=== PATIENT | male | born 1980 | race Caucasian/White ===

== ENCOUNTER → 2018-03-26 09:02 | Outpatient (CLI) | payer OTHER, SELFPAY ==
[2018-03-31 16:10] LABS: QNTFERON TB Ag Minus Nil Value < 0 IU/mL (.); QNTFERON TB Ag Value 0.06 IU/mL (.); QNTFERON TB Mitogen Value > 10.00 IU/mL (.); QNTFERON TB Nil Value 0.08 IU/mL (.)
[2018-03-31 16:36] LABS: QNTIFERON TB Gold Negative (Negative)
== END ==
PROVIDERS: Visit Provider Dermatology Pediatric Dermatology
DX: L40.0 Psoriasis vulgaris (principal); Z79.899 Other long term (current) drug therapy
CPT/HCPCS: 36415; 86480

== ENCOUNTER → 2020-11-18 10:24 | Outpatient (CLI) | payer OTHER, SELFPAY ==
[2020-11-18 12:13] LABS: Absolute Lymphocyte Count 2.05 X10^3/uL (0.83-4.51); Absolute Neutrophil Count 2.4 X10^3/uL (2.0-7.7); Basophil# 0.02 X10^3/uL; Basophil% 0.4 % (0-1); Eosinophil# 0.06 X10^3/uL; Eosinophils% 1.2 % (0-5); Hematocrit 43.9 % (40-54); Lymphocyte # 2.05 X10^3/ul (4.0); Lymphocyte % 42.3 % (19-41); Mean Corp Hgb Conc 34.2 g/dL (32-36); Mean Corpuscular Hgb 30.2 pg (27.0-32.0); Mean Corpuscular Volume 88.3 fL (80-94); Mean Platelet Vol. 9.2 fl (6.2-12.0); Monocyte# 0.28 X10^3/uL; Monocyte% 5.8 % (0-10); NRBC Flagged by Analyzer 0 % (0-5); Neutrophil # 2.43 X10^3/uL (2.7-7.7); Neutrophil % 50.1 % (47-70); Platelet Count 221 K/mm3 (150-450); RBC Distribution Width CV 11.9 % (11.6-14.6); RBC Distribution Width SD 38.1 fl (35.1-43.9); Red Blood Count 4.97 M/mm3 (4.6-6.2); White Blood Count 4.9 K/mm3 (4.4-11.0)
[2020-11-18 12:37] LABS: AST(SGOT) 17 U/L (15-37); Alanine Aminotransfer ALT/SGPT 22 U/L (16-61); Alkaline Phosphatase 65 U/L (45-117); Anion Gap 3 (5-15); BUN 12 mg/dL (7-18); BUN/Creat Ratio 10.7 RATIO (10-20); Bilirubin, Direct 0.16 mg/dL (0.00-0.30); Calcium,Total 8.7 mg/dL (8.5-10.1); Chloride 105 mmol/L (98-107); Cholesterol 182 mg/dL (200); Creatinine, Serum 1.12 mg/dL (0.70-1.30); EST Glomerular Filtration Rate 77 mL/min (>60); Est Glom Filt Rate - Afr Amer 93 mL/min (>60); Globulin 3.1 g/dL (2.2-4.2); Glucose 87 mg/dL (74-106); High Density Lipoprotein 66 mg/dL; Potassium 3.8 mmol/L (3.5-5.1); Protein, Total 7.1 g/dL (6.4-8.2); Sodium Level 140 mmol/L (136-145); Triglycerides 66 mg/dL; Very Low Density Lipoprotein 13 mg/dL (5-40)
[2020-11-18 13:14] LABS: Hepatitis B Surface Antibody Non-Reactive; Hepatitis B Surface Antigen Non-Reactive (Nonreactive); Hepatitis C Antibody Non-Reactive (Nonreactive)
[2020-11-22 09:36] LABS: LDL, Direct 120295 108 mg/dL (0-99); QNTFERON TB Mitogen Value > 10.00 IU/mL (.); QNTFERON TB Nil Value 0.02 IU/mL (.); QNTFERON TB1+ Ag Value 0.04 IU/mL (.); QNTFERON TB2+ Ag Value 0.02 IU/mL (.)
[2020-11-22 15:44] LABS: Hepatitis B Core Ab Total Negative (Negative); QNTIFERON TB Positive Criteria Negative (Negative)
== END ==
PROVIDERS: PCP Family Medicine; Referring Provider Physician Assistant Medical; Visit Provider Physician Assistant Medical
DX: L40.0 Psoriasis vulgaris (principal); Z79.899 Other long term (current) drug therapy
CPT/HCPCS: 36415; 80048; 80061; 80076; 83721; 85025; 86480; 86704; 86706; 86803; 87340

== ENCOUNTER → 2021-09-22 10:03 | Outpatient (CLI) | payer OTHER, SELFPAY ==
[2021-09-29 16:09] LABS: QNTFERON TB Mitogen Value > 10.00 IU/mL (.); QNTFERON TB Nil Value 0.04 IU/mL (.); QNTFERON TB1+ Ag Value 0.06 IU/mL (.); QNTFERON TB2+ Ag Value 0.04 IU/mL (.)
[2021-09-29 16:21] LABS: QNTIFERON TB Positive Criteria Negative (Negative)
== END ==
PROVIDERS: PCP Family Medicine; Referring Provider Physician Assistant Medical; Visit Provider Physician Assistant Medical
DX: L40.0 Psoriasis vulgaris (principal); Z79.899 Other long term (current) drug therapy
CPT/HCPCS: 36415; 86480

== ENCOUNTER → 2023-01-18 | Outpatient (CLI) | payer OTHER, SELFPAY ==
[2023-01-23 10:08] LABS: QNTFERON TB Mitogen Value > 10.00 IU/mL (.); QNTFERON TB Nil Value 0.05 IU/mL (.); QNTFERON TB1+ Ag Value 0.03 IU/mL (.); QNTFERON TB2+ Ag Value 0.02 IU/mL (.)
[2023-01-23 20:32] LABS: Hepatitis B Core Ab Total Negative (Negative); QNTIFERON TB Positive Criteria Negative (Negative)
== END | disposition home or self-care (01) ==
PROVIDERS: PCP Family Medicine; Referring Provider Physician Assistant Medical; Visit Provider Physician Assistant Medical
DX: L40.0 Psoriasis vulgaris (principal); Z79.899 Other long term (current) drug therapy
CPT/HCPCS: 36415; 86480; 86704

== ENCOUNTER → 2024-02-13 | Outpatient (CLI) | payer OTHER, SELFPAY ==
--- OUTSIDE RECORDS SUMMARY | 2024-02-13 09:20 | XMS RPT_ITS | CCD ---
Author Name Unknown Address [address] [place] [address] Organization [facility] Care Team Providers Care Builder Beam Name Role Phone LORI LUGO MD Attending Unavailable Peña AKINS Consulting Unavailable LORI LUGO MD Admitting Unavailable LORI LUGO MD Primary Care Unavailable PROVIDER, UNKNOWN Consulting Unavailable PROVIDER, UNKNOWN Consulting Unavailable PROVIDER, UNKNOWN Consulting Unavailable Peña AKINS MD Unavailable [phone] SHILO GIBSON MD Unavailable [phone] DAMASO SHAHID MD Unavailable Guevara WOODS MD Unavailable ALYSIA HELM Unavailable Unavailable Kacie Harrington Unavailable Unavailable GOLDIE VELA Unavailable Unavailable Unavailable Unavailable Medications Current Medications Medication Drug Class(es) Dates Sig (Normalized) Sig (Original) 1 ml ixekizumab 80 mg/ml prefilled syringe (1 source) Interleukin-17A Antagonist Taltz 80 MG/ML Subcutaneous Solution Prefilled Syringe ; 1 monthly (80 MG/ML) Comments: psoriasis Completed/Discontinued Medications Medication Drug Class(es) Dates Sig (Normalized) Sig (Original) acetaZOLAMIDE 125 mg oral tablet (1 source) Carbonic Anhydrase Inhibitor Start: 08-07-2017 End: 08-26-2017 take 1 tablet by mouth twice daily AcetaZOLAMIDE 125 MG Oral Tablet ; 1 (one) Tablet two times daily for 0 days Quantity: 25 {Tablet} Refills: 0 Ordered: 26-Aug-2017 GOLDIE VELA Start: 07-Aug-2017 End: 26-Aug-2017 Status: Inactive Comments: start at least 24 hours before ascent Problems Active Problems Problem Classification Problem Date Documented Date Episodic/Chronic Abdominal pain (2 sources) Left inguinal pain; Translations: [Left lower quadrant pain] 11-19-2022 Episodic Cardiac and circulatory congenital anomalies (1 source) Bicuspid aortic valve; Translations: [Congenital insufficiency of aortic valve] 06-17-2017 Chronic Contraceptive and procreative management (1 source) Vasectomy planned; Translations: [Encounter for sterilization] 02-26-2014 Episodic Immunizations and screening for infectious disease (1 source) Requires diphtheria, tetanus and pertussis vaccination; Translations: [Encounter for immunization] 08-30-2015 Episodic Other circulatory disease (1 source) Elevated blood pressure; Translations: [Elevated blood-pressure reading, without diagnosis of hypertension] 08-28-2018 Episodic Other connective tissue disease (3 sources) Medial epicondylitis, right elbow; Translations: [Medial epicondylitis, right elbow] Onset: 10-17-2023 Episodic Other inflammatory condition of skin (2 sources) Psoriasis; Translations: [Psoriasis, unspecified] 08-31-2019 Chronic Other injuries and conditions due to external causes (1 source) Anoxia due to high altitude; Translations: [Other effects of high altitude, initial encounter] 08-07-2017 Episodic Other screening for suspected conditions (not mental disorders or infectious disease) (4 sources) Patient encounter status; Translations: [Encounter for screening for lipoid disorders] 08-31-2019 Episodic Pneumonia (except that caused by tuberculosis or sexually transmitted disease) (1 source) Pneumonia; Translations: [Pneumonia, unspecified organism] 09-20-2014 Episodic Residual codes; unclassified (1 source) Viral syndrome; Translations: [Other general symptoms and signs] 02-03-2018 Episodic Skin and subcutaneous tissue infections (2 sources) Furuncle; Translations: [Furuncle, unspecified] 06-18-2022 Episodic Spondylosis; intervertebral disc disorders; other back problems (2 sources) Sciatica; Translations: [Sciatica, left side] 11-19-2022 Episodic Viral infection (1 source) Viral exanthem; Translations: [Unspecified viral infection characterized by skin and mucous membrane lesions] 03-30-2017 Episodic Past or Other Problems Problem Classification Problem Date Documented Da te Episodic/Chronic Headache; including migraine (1 source) Headache; including migraine 02-03-2018 Other infections; including parasitic (1 source) Personal history of other infectious and parasitic diseases Onset: 01-30-2022 08-20-2022 Episodic Results Test Name Value Interpretation Reference Range Facil ity Vital Signs Date Time Vital Sign Value Performing Clinician Dylon chiu 11-19-2022 10:31-0500 Body height 181.61 cm Peña AKINS MD Work Phone: [employer]; [employer] 11-19-2022 10:31-0500 Body mass index (BMI) [Ratio] 24.07 kg/m2 Peña AKINS MD Work Phone: [employer]; [employer] 11-19-2022 10:31-0500 Body surface area Derived from formula 2 m2 Peña AKINS MD Work Phone: [employer]; [employer] 11-19-2022 10:31-0500 Body weight 79.38 kg Peña AKINS MD Work Phone: [employer]; [employer] 11-19-2022 10:31-0500 Diastolic blood pressure 89 mm[Hg] Peña AKINS MD Work Phone: [employer]; [employer] Encounters Encounter Date Encounter Type Care Provider Facility Start: 10-17-2023 End: 11-26-2023 ambulatory LORI GOLDBERG [facility] Start: 10-11-2023 End: 10-11-2023 Historical Summary Peña AKINS MD Work Phone: [employer] Start: 11-19-2022 End: 11-19-2022 Office outpatient visit 15 minutes Peña AKINS MD Work Phone: [employer] Start: 08-20-2022 End: 08-20-2022 Patient encounter procedure [facility] [employer] [employer] [facility] [employer]. Start: 08-20-2022 End: 08-20-2022 Periodic preventive med est patient 40-64yrs Peña AKINS MD Work Phone: [facility] [employer] [facility]. Start: 06-21-2022 End: 06-21-2022 Results Review [facility]INS [facility] [employer] Start: 06-18-2022 End: 06-18-2022 Office outpatient visit 15 minutes Peña AKINS MD Work Phone: [facility] [employer] Start: 08-28-2021 End: 08-28-2021 Patient encounter procedure Peña AKINS MD [facility] [employer]; [employer] [facility] [employer]. Start: 08-28-2021 End: 08-28-2021 Periodic preventive med est patient 40-64yrs Peña AKINS MD [facility] Start: 08-31-2019 End: 08-31-2019 Patient encounter procedure Peña AKINS MD [facility] [employer] [employer] [facility] [employer]. Start: 08-31-2019 End: 08-31-2019 Periodic preventive med est patient 40-64yrs Peña AKINS MD [facility] Start: 08-28-2018 End: 08-28-2018 Office outpatient visit 25 minutes Peña AKINS MD Work Phone: [facility] [employer] Start: 08-28-2018 End: 08-28-2018 Patient encounter status [facility] HELM [facility] [employer] [facility] [place]. Procedures Date Procedure Procedure Detail Performing Clinician Start: 11-19-2022 End: 11-19-2022 Dischrg meds reconciled w/current med list Peña AKINS MD Work Phone: Start: 08-20-2022 End: 08-20-2022 Dischrg meds reconciled w/current med list Peña AKINS MD Work Phone: Start: 06-18-2022 End: 06-18-2022 Dischrg meds reconciled w/current med list Peña AKINS MD Work Phone: Start: 08-28-2021 End: 08-28-2021 Dischrg meds reconciled w/current med list Peña AKINS MD Work Phone: Start: 08-31-2019 End: 08-31-2019 Dischrg meds reconciled w/current med list Peña AKINS MD Work Phone: Start: 08-31-2019 End: 08-31-2019 Urinary Incontinence Peña AKINS MD Work Phone: Plan of Treatment Date Care Activity Detail Author Start: 06-18-2022 Incision & drainage abscess simple/single I&D SKIN ABSCESS (25740) Start: 18-Jun-2022 Intent [employer] [facility] [employer]. Start: 08-31-2019 Comprehensive metabolic panel CMP - COMPREHENSIVE METABOLIC PANEL ([id number]) Start: 31-Aug-2019 15:44 Request [employer] [employer]. Start: 08-31-2019 Blood count complete auto&auto difrntl wbc CBC, PLATELETS & AUT DIFF ([id number]) Start: 31-Aug-2019 15:44 Request [employer] [employer]. Start: 08-31-2019 Lipid panel LIPID PANEL ([id number]) Start: 31-Aug-2019 15:43 Request [employer] [employer]. Start: 08-28-2018 Patient Education PSORIASIS Indication: Psoriasis Start: 28-Aug-2018 Instruction Type: Patient Education [employer]; [facility] [employer] Start: 08-26-2017 Urnls dip stick/tablet rgnt non-auto w/o micrscp U/A W/O MICROSCOPY (IN OFFICE) ([id number]) Start: 26-Aug-2017 10:20 [facility]; [facility] [employer] Start: 02-26-2014 Vasectomy uni/bi spx w/postop semen exams VASECTOMY ([id number]) Start: 26-Feb-2014 Intent Comments: done under local without complications [facility] [employer]; [facility] [employer] Immunizations Immunization Date Immunization Notes Care Provider Shahzad polanco 08-26-2017 influenza virus vaccine, unspecified formulation Peña AKINS MD Work Phone: [employer]; [facility] [employer] Payers Date Payer Category Payer Unknown [id number] Unknown [id number] Unknown [employer] Social History Date Type Detail Facility Alcohol Use: Alcohol Use: ; 1 to 7 drinks per week. 2 drinks per occasion. [employer]; [facility] [employer] Caffeine Use - Current Caffeine Use - Cur rent [employer]; [employer] [facility] [employer] Current Work/Study Status: Karen tse Work/Study Status: ; Full-time. [employer]; [employer] [facility] [employer] Highest Education Le ayesha Attained: Highest Education Level Attained: ; College graduate. [employer]; [employer] [facility] [employer] Marital status: Marital status: ; . [employer]; [employer] [facility] [employer] Spouse's Employment: Spouse's Em ployment: ; Part-time. [email or web address] [facility] Tobacco use: Tobacco use: ; N ever smoker. [facility]. Male [facility] [employer] [facility] [employer] Work Phone: [facility]-time [facility]. Work Phone: Part-time [facility].; [facility]. Work Phone: College graduate [facility].; [facility] Work Phone: Never smoked tobacco [facility].; [facility] Work Phone: Ex-smoker [facility].; [facility]. Work Phone: [facility].; [facility] Work Phone: Clinical Note 06-21-2022 Note Date & Type Note Facility 06-21-2022 Note . MICRO - Microbiology PROCEDURE: Culture Wound Aerobic with Gram Stain [*1] SOURCE: Boil BODY SITE: Abdomen COLLECTED DATE/TIME: 06/18/2022 11:47 EDT RECEIVED DATE/TIME: 06/18/2022 21:35 EDT START DATE/TIME: 06/18/2022 21:36 EDT FREE TEXT SOURCE: FINAL REPORTS Final Report [] Verified Date/Time/Personnel: 06/21/2022 08:07 EDT Few Staphylococcus aureus Few normal skin onofre present. Sensitivity testing not indicated. PRELIMINARY REPORTS Preliminary Report [] Verified Date/Time/Personnel: 06/20/2022 08:38 EDT Few Staphylococcus aureus KELLE to follow Few normal skin onofre present. Sensitivity testing not indicated. Preliminary Report [] Verified Date/Time/Personnel: 06/19/2022 08:35 EDT Culture results pending. STAINS GS [] Verified Date/Time/Personnel: 06/18/2022 22:38 EDT Rare Epithelial cells No organisms seen. SUSCEPTIBILITY RESULTS Staphylococcus aureus Antibiotic KELLE Dilut KELLE Inter Ampicillin >8 Beta Lactamase Positive Ampicillin/ <=8/4 Susceptible Sulbactam Azithromycin <=2 Susceptible Cefepime <=4 Susceptible Cefotaxime <=8 Susceptible Ceftaroline <=0.5 Susceptible Ceftriaxone <=4 Susceptible Ciprofloxacin <=1 Susceptible Clindamycin <=0.25 Susceptible Erythromycin <=0.25 Susceptible Imipenem <=4 Susceptible Levofloxacin <=1 Susceptible Meropenem <=2 Susceptible Oxacillin <=0.25 Susceptible Penicillin >2 Beta Lactamase Positive Piperacillin/ <=8 Susceptible Tazobactam Tetracycline <=4 Susceptible Trimethoprim/ <=0.5/9.5 Susceptible Sulfa Vancomycin 0.5 Susceptible Performing Locations *1: This test was performed at: [address], [facility] , [facility] ([place]) Summary Purpose Family History Brother (s) Status:Active Comments:0. Daughter (s) Status:Active Comments:1. Father Status:Active Comments:In good health. b. 1954 - estranged Mother Status:Active Comments:In good health. Hypertension. b. 1950 Sister (s) Status:Active Comments:1. In [place]. Son (s) Status:Active Comments:2. 1 wi th allergies; Advance Directives No Advanced Directives Records FoundNo Advanced Directives Records Found Additional Source Comments (unrecognized sect ion and content) No Status Records FoundNo Status Records Found INFORMATION SOURCE (unrecogn ized section and content) DATE CREATED AUTHOR AUTHOR'S ORGANIZ ATION 11/28/2023 [facility] FOR RECORDS PERTAINING TO PATIENTS WHO ARE OR HAVE BEEN ENROLLED IN A CHEMICAL DEPENDENCY/SUBSTANCEABUSE PROGRAM, SOME INFORMATION MAY BE OMITTED. This clinical summary was aggregated from multiple sources. Caution should be exercised in using it in the provision of clinical care. This summary normalizes information from multiple sources, and as a consequence, information in this document may materially change the coding, format and clinical context of patient data. In addition, data may be omitted in some cases. CLINICAL DECISIONS SHOULD BE BASED ON THE PRIMARY CLINICAL RECORDS. [employer] [facility]. provides no warranty or guarantee of the accuracy or completeness of information in this document.
== END | disposition home or self-care (01) ==
LOC: MTLAB 08:46
PROVIDERS: PCP Family Medicine; Referring Provider Physician Assistant Medical; Visit Provider Physician Assistant Medical
DX: L40.0 Psoriasis vulgaris (principal); Z79.899 Other long term (current) drug therapy
CPT/HCPCS: 36415; 86480

== ENCOUNTER → 2025-03-12 | Outpatient (CLI) | payer OTHER, SELFPAY ==
[2025-03-16 17:08] LABS: QNTFERON TB Mitogen Value > 10.00 IU/mL (.); QNTFERON TB Nil Value 0.01 IU/mL (.); QNTFERON TB1+ Ag Value 0.05 IU/mL (.); QNTFERON TB2+ Ag Value 0.01 IU/mL (.); QNTIFERON TB Positive Criteria Negative (Negative)
== END | disposition home or self-care (01) ==
LOC: MTLAB 08:04
PROVIDERS: PCP Family Medicine; Referring Provider Physician Assistant Medical; Visit Provider Physician Assistant Medical
DX: L40.0 Psoriasis vulgaris (principal); Z79.899 Other long term (current) drug therapy
CPT/HCPCS: 36415; 86480

== ENCOUNTER → 2025-09-13 | Outpatient (CLI) | payer OTHER, SELFPAY ==
[2025-09-16 05:07] LABS: QNTFERON TB Mitogen Value > 10.00 IU/mL (.); QNTFERON TB Nil Value 0.02 IU/mL (.); QNTFERON TB1+ Ag Value 0.04 IU/mL (.); QNTFERON TB2+ Ag Value 0.03 IU/mL (.); QNTIFERON TB Positive Criteria Negative (Negative)
== END | disposition home or self-care (01) ==
LOC: MTLAB 08:29
PROVIDERS: PCP Family Medicine; Referring Provider Physician Assistant Medical; Visit Provider Physician Assistant Medical
DX: L40.0 Psoriasis vulgaris (principal)
CPT/HCPCS: 36415; 86480